=== PATIENT | female | born 1975 | race Caucasian/White ===

== ENCOUNTER 2017-10-11 19:59 | Emergency (ER) | payer OTHER ==
[~2017-10-11] VITALS: Ht 162.6 cm; Wt 102.3 kg
[2017-10-11 20:01] VITALS: BP 181/100; PULSE 86; RESP 16; TEMP 97.9; O2SAT 100
[2017-10-11] MEDS ORDERED: NAPROXEN 500 MG TAB PO ONE (23:00)
[2017-10-11] MEDS ORDERED: CYCLOBENZAPRINE HCL 10 MG TAB PO ONE (23:00)
[2017-10-11] MEDS ORDERED: DICL75TA PO (23:02)
[2017-10-11] MEDS ORDERED: CYCL10TA PO (23:02)
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
== END 2017-10-11 23:41 | disposition home or self-care (01) ==
LOC: NEPD 19:59
DX: M54.2 Cervicalgia (principal); M54.9 Dorsalgia, unspecified; V43.52XA Car driver injured in collision with other type car in traffic accident, initial encounter
CPT/HCPCS: 99284